=== PATIENT | male | born 1995 | race Caucasian/White ===

== ENCOUNTER 2024-10-27 18:52 | Emergency (ER) | payer MEDICAID, SELFPAY ==
[2024-10-27 19:55] VITALS: BP 160/70; PULSE 74; RESP 18; TEMP 36.9; O2SAT 99; BMI 24.5
--- NOTE | 2024-10-27 20:04 | EDNOTE_ITS ---
ED Head Injury RME/HPI General Chief complaint: Head Injury Stated complaint: KICKED IN FACE BY A HORSE Time Seen by Provider: 10/27/24 19:09 Arrival date/time: 10/27/24 18:52 RME / HPI RME / HPI Narrative: 28-year-old male patient was brought in for evaluation regarding left jaw injury. Patient apparently was kicked by his horse earlier today in his left lower jaw initially patient complained of pain to the left lower jaw, difficulty opening the mouth but on my initial evaluation patient told me that he is now able to fully open the mouth, there is no misalignment of the teeth, pain is tolerable. Patient denies any neck pain denies any LOC denies any other injury patient is ambulatory. Patient's tetanus vaccination is 2 years old. Related Data Previous Rx's ?Medication ?Instructions ?Recorded ibuprofen 800 mg tablet 800 mg PO Q8H PRN pain #30 t abs 10/27/24 Allergies Allergy/AdvReac Type Severity Reaction Status Date / Time No Known Drug Allergies Allergy Verified 10/27/24 18:55 Review of Systems Review of Systems Narrative Review of Systems: Review of system reviewed and within normal limits except mentioned in HPI ED Exam Narrative Physical exam: VITAL SIGNS: Reviewed. GENERAL APPEARANCE: Alert and interactive, follows commands, no acute distress, HEAD AND FACE: No swelling no deformity except for mild abrasion to the left lower jaw patient is able to open the mouth without any difficulty or limitation. There is no misalignment of the teeth. ENT: PERRL, pink conjunctivitis, eyelid no trauma, Mucous membrane moist. NECK: Supple, nontender, no nuchal rigidity. CHEST: No tenderness, no crepitus, no paradoxical movement, no retractions. LUNGS: Clear, well ventilated, symmetric, no rales, no wheezing, no ronchi, no stridor, good breath sounds bilaterally. HEART: Regular rate, regular rhythm, no murmur, no gallops. ABDOMEN: Soft, positive bowel sounds, nondistended, no guarding, nontender, no rebound, no masses, RECTAL: Deferred. GENITAL: Deferred. NEUROLOGICAL: Gross motor function intact sensory function intact, Appropriate for age. MUSCULOSKELETAL: low back nontender, full range of motion. EXTREMITIES: Nontender, full range of motion. SKIN: Color pink, dry, no rash, no lacerations, no abrasions, no contusions. LYMPHATICS: Deferred. Course Quality Measures none Vital Signs Vital signs: Vital Signs Temperature 98.5 F 10/27/24 19:55 Pulse Rate 74 10/27/24 19:55 Respiratory Rate 18 10/27/24 19:55 Blood Pressure 160/70 H 10/27/24 19:55 Pulse Oximetry (%) 99 10/27/24 19:55 Oxygen Delivery Method Room Air 10/27/24 19:55 Head Injury MDM Narrative MDM Narrative:: 28-year-old male patient was brought in for evaluation regarding left jaw injury. Patient apparently was kicked by his horse earlier today in his left lower jaw initially patient complained of pain to the left lower jaw, difficulty opening the mouth but on my initial evaluation patient told me that he is now able to fully open the mouth, there is no misalignment of the teeth, pain is tolerable. Patient denies any neck pain denies any LOC denies any other injury patient is ambulatory. Patient's tetanus vaccination is 2 years old. Imaging is not needed at this time. Patient is able to fully open the mouth without any difficulty. Pain is minimal. And tolerable no deformity no crepitus. Patient data External records reviewed:: None Clinical information provided by:: patient Social determinants that could affect healthcare access:: none Patient has the following chronic illnesses:: None How is presenting disease/condition affected by chronic disease/condition?: no chronic disease Evaluation data The following diagnostics were reviewed and interpreted by me:: other (specify) Lab and/or radiology exams considered but not ordered:: None Interpretation Summary: None Medications / Prescriptions Medications or Prescriptions considered but not ordered:: None Medication administrations:: none Consultations Consultation(s) initiated? (list below): No Diagnosis Differential diagnosis head injury: other (Jaw pain, jaw contusion, mandibular fracture) Most likely diagnosis given after review of the tests above:: Jaw pain Admission Indicated Admission indicated?: not indicated Admission Request Was there a request for admission?: No Disposition Plan Disposition Plan: Discharge Discharge Attestation Discharge Attestation: The patient was given an opportunity to ask questions and understood the discharge instructions. Discharge instructions specifically effects, indications for sooner follow up or return to the emergency department, and the expected course of current diagnosis. Patient condition: Stable Discharge Plan Plan Patient Disposition: HOME (Self Care) Disposition Comment: Stable Prescriptions/Referrals Prescriptions/Med Rec: New ibuprofen 800 mg tablet 800 mg PO Q8H PRN (Reason: pain) Qty: 30 0RF Problem List Clinical Impression: Jaw pain Patient/Caregiver Discharge Instructions Discharge Activity: activity as tolerated Education Materials: Understanding the Pain Response Additional Instructions: Thank you for the opportunity for serving you today. You are stable for discharged . You are advised to: Follow-up with your PCP in 1 to 2 days Return to ED for worsening of symptoms, inability to open the mouth, misalignment of your teeth Increase oral fluids Take medication as prescribed Print Language: [place] Stand Alone Forms: Kathleen Award Info., Patient Portal Info Letter
== END 2024-10-27 20:40 | disposition home or self-care (01) ==
LOC: SERX 20:11
PROVIDERS: Emergency Provider Emergency Medicine
DX: S09.93XA Unspecified injury of face, initial encounter (principal); W55.12XA Struck by horse, initial encounter
CPT/HCPCS: 99281